=== PATIENT | male | born 1960 | race African-American/Black ===

== ENCOUNTER 2018-05-22 20:24 | Emergency (ER) | payer MEDICARE ==
[~2018-05-22] VITALS: Ht 182.9 cm; Wt 116.2 kg
[~2018-05-22 20:24] MED LIST: ACETTAB3 OR; AMLODIPINE5 MG PO; CEPHALEXIN500 MG OR; FINASTERIDE5 MG PO; FLEXERIL OR; FLEXERIL PO; LORTAB 1010 MG PO; LORTAB5 PO; METFORMIN500 M1 PO; MOBIC7.5 M1 PO; MULTIVITAMI1 OR; NORCO1 TA1 PO; NORVASC5 MG OR; NORVASC5 MG PO; SERTRALINE50 MG OR; ULTRAM50 M1 OR; ULTRAM50 MG OR; UNKNOWN MED; VENLAFAXINE HCL75 M1 PO; WELLBUTRIN X1 PO; ZOLOFT100 MG PO
[2018-05-22] MEDS ORDERED: FIORICET PO (22:00)
[2018-05-22] MEDS ORDERED: AMOXICILLIN500 MG PO (22:00)
[2018-05-22 22:23] VITALS: BP 142/84
== END 2018-05-22 22:23 | disposition home or self-care (01) ==
LOC: ED 20:24
DX: K02.9 Dental caries, unspecified (principal); R51 Headache; E11.9 Type 2 diabetes mellitus without complications; I10 Essential (primary) hypertension; F17.210 Nicotine dependence, cigarettes, uncomplicated

== ENCOUNTER 2022-03-10 06:31 | Day surgery (SDC) | payer MEDICARE ==
[~2022-03-10] VITALS: Ht 182.9 cm; Wt 123.4 kg
[~2022-03-10 06:31] MED LIST changes: +AMOXICILLIN500 MG PO; +DOXAZOSIN4 MG PO; +FIORICET PO; +VITAMIN B-12500 MCG PO
[2022-03-10 10:59] VITALS: BP 109/77
== END 2022-03-10 09:00 | disposition home or self-care (01) ==
LOC: ENDO 06:31
PROVIDERS: ATTEND Surgery
PROC: 0DBL8ZX Excision of Transverse Colon, Via Natural or Artificial Opening Endoscopic, Diagnostic (ICD-10-PCS; principal; 2022-03-10)
DX: Z12.11 Encounter for screening for malignant neoplasm of colon (principal); K63.5 Polyp of colon; K64.8 Other hemorrhoids; C85.90 Non-Hodgkin lymphoma, unspecified, unspecified site; F17.200 Nicotine dependence, unspecified, uncomplicated; Z94.81 Bone marrow transplant status

== ENCOUNTER 2023-01-06 11:52 | Inpatient (IN) | payer MEDICARE ==
[2023-01-06] VITALS (17 sets, daily range): BP systolic 83–132; BP diastolic 33–66
[~2023-01-06] VITALS: Ht 182.9 cm; Wt 109.3 kg
--- NOTE | 2023-01-06 11:52 | NUR ---
PT ARRIVE TO ER VIA EMS. PT PLACED IN RM 4. PROVIDER AT BEDSIDE.
[2023-01-06] MEDS ORDERED: DOXEPIN HCL25 MG PO (12:46)
[2023-01-06 12:47] LABS: BASO% 0.1 % (0-3); IMMATURE GRANULOCYTES 0.5 % (0.0-5.0); LYMPH% 10.4 % (15-41); MEAN CELL VOLUME 99.5 fL CALC (80.0-100.0); MEAN CORPUSCULAR HGB 28.6 pG CALC (26.0-32.0); MEAN CORPUSCULAR HGB CONC 28.7 g/dL CAL (32.0-36.0); MONO% 7.2 % (2-13); NEUT# 6.14 thou/uL (1.82-7.42); NEUT% 81.8 % (42-76); RED BLOOD COUNT 1.82 mill/uL (4.70-6.10); RED CELL DISTRI WIDTH 17.5 % (11.5-15.5)
[2023-01-06] MEDS ORDERED: GABAPENTIN600 MG PO (12:47)
[2023-01-06] MEDS ORDERED: FUROSEMIDE20 MG PO (12:47)
[2023-01-06] MEDS ORDERED: METFORMIN HCL1000 MG PO (12:48)
[2023-01-06] MEDS ORDERED: HYDROXYCHLOR200 M1 PO ×2 (12:49→12:52)
[2023-01-06 12:50] LABS: HEMATOCRIT 18.1 % (39.0-50.0); HEMOGLOBIN 5.2 g/dl (14.0-18.0)
[2023-01-06] MEDS ORDERED: ASPIRIN81 MG PO (12:50)
[2023-01-06] MEDS ORDERED: TOPROL XL25 M1 PO (12:51)
[2023-01-06 13:04] LABS: INTERNATIONAL NORMALIZED RATIO 1.3 RATIO (0.7-1.3)
[2023-01-06 13:06] LABS: ALBUMIN 3.2 g/dL (3.2-5.0); ALKALINE PHOSPHATASE 46 u/l (38-126); BILIRUBIN, TOTAL 0.3 mg/dL (0.2-1.3); BUN 28 mg/dL (9-20); BUN/CREATININE RATIO 21 (12-20 (CALC)); CARBON DIOXIDE 21 mmol/l (22-30); CHLORIDE 101 mmol/l (95-108); CREATININE 1.3 mg/dL (0.7-1.3); GFR FOR AFR.AMER. > 60 ML/MIN (>=60 (CALC)); GFR OTHER RACES 56 ML/MIN (>=60 (CALC)); POTASSIUM 4.2 mmol/l (3.5-5.1); TOTAL PROTEIN 6.8 g/dL (6.3-8.2)
[2023-01-06 13:09] LABS: ANION GAP 12 (6-22 (CALC)); SGOT/AST 68 u/l (17-59); SODIUM 130 mmol/l (137-146)
[2023-01-06 18:27] LABS: HEMATOCRIT 18.4 % (39.0-50.0); HEMOGLOBIN 5.4 g/dl (14.0-18.0)
--- NOTE | 2023-01-06 20:44 | NUR ---
STARTED BLOOD TRANSFUSION IN ED PRIOR TO TAKING TO ICU. PATIENT SIGNED CONSENT AND HAS PREVIOUSLY RECEIVED TRANSFUSION. REPORT RECEIVED FROM PREVIOUS SHIFT STATES POSITIVE OCCULT BLOOD. PROTONIX DRIP STARTED WELL. TAKEN TO ICU ROOM 2 AT 2029.
[2023-01-06 21:09] LABS: URINE BILIRUBIN - DIPSTICK NEGATIVE (NEGATIVE); URINE BLOOD DIPSTICK LARGE (NEGATIVE); URINE COLOR YELLOW; URINE GLUCOSE - DIPSTICK NEGATIVE (NEGATIVE); URINE KETONE NEGATIVE (NEGATIVE); URINE LEUK ESTERASE NEGATIVE (NEGATIVE); URINE PH 5.5 (4.5-8.0); URINE PROTEIN - DIPSTICK 30 mg/dL (NEG-TRACE); URINE UROBILINOGEN - DIPSTICK 0.2 E.U./dL (0.2)
[2023-01-06 21:10] LABS: URINE NITRITE - DIPSTICK NEGATIVE (Negative)
[2023-01-06 21:15] LABS: URINE SQUAMOUS EPITHELIAL CELL RARE EPI/hpf (0-FEW)
[2023-01-07] VITALS (59 sets, daily range): BP systolic 48–146; BP diastolic 25–96
[2023-01-07 05:31] LABS: BASO% 0.1 % (0-3); EOS% 0.5 % (0-8); HEMATOCRIT 23.8 % (39.0-50.0); IMMATURE GRANULOCYTES 0.3 % (0.0-5.0); LYMPH% 16.2 % (15-41); MEAN CELL VOLUME 98.8 fL CALC (80.0-100.0); MEAN CORPUSCULAR HGB 30.7 pG CALC (26.0-32.0); MEAN CORPUSCULAR HGB CONC 31.1 g/dL CAL (32.0-36.0); NEUT# 5.25 thou/uL (1.82-7.42); NEUT% 69.9 % (42-76); RED BLOOD COUNT 2.41 mill/uL (4.70-6.10); RED CELL DISTRI WIDTH 16.6 % (11.5-15.5)
[2023-01-07 05:46] LABS: HEMOGLOBIN 7.4 g/dl (14.0-18.0)
[2023-01-07 05:50] LABS: ANION GAP 11 (6-22 (CALC)); BUN 25 mg/dL (9-20); BUN/CREATININE RATIO 24 (12-20 (CALC)); CARBON DIOXIDE 23 mmol/l (22-30); CHLORIDE 105 mmol/l (95-108); CREATININE 1.1 mg/dL (0.7-1.3); GFR FOR AFR.AMER. > 60 ML/MIN (>=60 (CALC)); GFR OTHER RACES > 60 ML/MIN (>=60 (CALC)); MAGNESIUM 2.2 mg/dL (1.6-2.3); POTASSIUM 3.9 mmol/l (3.5-5.1); SODIUM 136 mmol/l (137-146)
[2023-01-07 08:27] LABS: HEMATOCRIT 23.1 % (39.0-50.0); HEMOGLOBIN 7.1 g/dl (14.0-18.0)
--- NOTE | 2023-01-07 08:56 | NUR ---
PT SEEN AWAKE, ALERT, ORIENTED X 3. DR HERZOG HAS SEEN PT THIS MORNING. PT AWARE OF PENDING SCOPE, WHICH DR EWING SAYS WILL BE TOMORROW.
--- NOTE | 2023-01-07 12:30 | NUR ---
PT AWARE OF EGD/COLONOSCOPY TOMORROW. HE HAS BEEN STARTED ON HIS BOWEL PREP, AND HAS HAD ONE LOOSE STOOL ALREADY. PT APPEARS WEAK, NOT MOVING VERY FAST, BUT STEADY ON HIS FEET.
[2023-01-07 14:09] LABS: HEMATOCRIT 25.4 % (39.0-50.0); HEMOGLOBIN 7.6 g/dl (14.0-18.0)
--- NOTE | 2023-01-07 14:21 | NUR ---
PT CONTINUES WITH BOWEL PREP, TO BSC NEEDED. STOOL IS LOOSE, DARK.
--- NOTE | 2023-01-07 20:10 | NUR ---
NEW IV STARTED IN R LOWER ARM AND RAC SITE REMOVED, BEDSIDE GLUCOSE 191 AFTER ADMIN OF 250 ML D10 FOR REPORTED GLUCOSE OF 52
[2023-01-07 20:20] LABS: HEMATOCRIT 24.2 % (39.0-50.0); HEMOGLOBIN 7.2 g/dl (14.0-18.0)
--- NOTE | 2023-01-07 22:15 | NUR ---
PT UP TO BSC, GOT COMPLETE BATH WITH LINEN AND GOWN CHANGE
[2023-01-08] VITALS (31 sets, daily range): BP systolic 89–143; BP diastolic 42–107
--- NOTE | 2023-01-08 00:20 | NUR ---
PT BEDSIDE GLUCOSE CHECKED, 33 THEN 18. PT NOT SYPTOMATIC, STAT LAB DRAW ORDERED, LAB RESULT 93, GLUCOMETER REPLACED BY LAB
[2023-01-08 02:10] LABS: HEMATOCRIT 24.7 % (39.0-50.0); HEMOGLOBIN 7.6 g/dl (14.0-18.0)
--- NOTE | 2023-01-08 03:10 | NUR ---
PT AGAIN TO BSC, BM ALMOST CLEAR, HE TRANSFERS WITH MINIMAL ASSIST AND REPOSITIONS SELF
--- NOTE | 2023-01-08 04:26 | NUR ---
PT RESTING, DENIES NEEDS, O2 AT 2 LPM, MAINTAINING SATS HIGH 90'S TO 100%
[2023-01-08 05:44] LABS: BASO% 0.2 % (0-3); EOS% 1.8 % (0-8); HEMATOCRIT 24.2 % (39.0-50.0); HEMOGLOBIN 7.4 g/dl (14.0-18.0); IMMATURE GRANULOCYTES 0.2 % (0.0-5.0); LYMPH% 18.6 % (15-41); MEAN CORPUSCULAR HGB CONC 30.6 g/dL CAL (32.0-36.0); MONO% 12.6 % (2-13); NEUT# 2.89 thou/uL (1.82-7.42); NEUT% 66.6 % (42-76); RED BLOOD COUNT 2.47 mill/uL (4.70-6.10); RED CELL DISTRI WIDTH 16.4 % (11.5-15.5)
[2023-01-08 06:09] LABS: INTERNATIONAL NORMALIZED RATIO 1.2 RATIO (0.7-1.3); PROTHROMBIN TIME 11.6 SECONDS (9.0-12.5)
[2023-01-08 06:16] LABS: ANION GAP 7 (6-22 (CALC)); BUN 17 mg/dL (9-20); BUN/CREATININE RATIO 18 (12-20 (CALC)); CARBON DIOXIDE 22 mmol/l (22-30); CHLORIDE 110 mmol/l (95-108); CREATININE 0.9 mg/dL (0.7-1.3); GFR FOR AFR.AMER. > 60 ML/MIN (>=60 (CALC)); GFR OTHER RACES > 60 ML/MIN (>=60 (CALC)); MAGNESIUM 2.1 mg/dL (1.6-2.3); POTASSIUM 3.9 mmol/l (3.5-5.1); SODIUM 136 mmol/l (137-146)
--- NOTE | 2023-01-08 08:00 | NUR ---
Patient sitting up on the side of the bed preparing for a partial bed bath. Patient denies any pain at this time. Patient is A/O x 4. Breathing is even and unlabored. No s/s of distress. No issues or concerns at this time.
--- NOTE | 2023-01-08 08:12 | NUR ---
Dr. Julian thao at bedside. Will review EGD/Colonoscopy results when available.
--- NOTE | 2023-01-08 08:14 | NUR ---
Patient left the unit with OR staff for EGD/colonoscopy.
--- NOTE | 2023-01-08 10:10 | NUR ---
Patient returned to the unit via stretcher accompained by OR staff. Patient is in stable condition. Patient denies having any pain. Colonoscopy revealed an internal hemorrhoid and EGD showed no active bleeding. Post-op assessment revealed clear lungs, even and unlabored breathing, and active bowel sounds. No s/s of distress. Will continue to monitor.
[2023-01-08] MEDS ORDERED: PROTONIX40 M2 PO (10:40)
[2023-01-08] MEDS ORDERED: FERROUS SULF325 M3 PO (10:40)
--- NOTE | 2023-01-08 12:00 | NUR ---
Patient sitting up in bed. Patient denies any pain at this time. No issues or concerns at this time. No s/s of distress. Will continue to monitor.
--- NOTE | 2023-01-08 14:00 | NUR ---
Patient appears to be asleep, resting with eyes close. No s/s of distress. Will continue to monitor.
--- NOTE | 2023-01-08 15:56 | NUR ---
Discharge instructions given. Patient verbalizes understanding of instructions given. Discharged in stable condition via Wheelchair to Home with family. All belongings sent with pt.
== END 2023-01-08 15:55 | DRG 812 ==
LOC: ED 11:52 → ED-I 13:30 → ED 16:14 → MS2 16:15 → ICU 20:31
PROVIDERS: Emergency Medicine; Internal Medicine; ADMIT Internal Medicine; ATTEND Internal Medicine
PROC: 30233N1 Transfusion of Nonautologous Red Blood Cells into Peripheral Vein, Percutaneous Approach (ICD-10-PCS; principal; 2023-01-06)
PROC: 30233N1 Transfusion of Nonautologous Red Blood Cells into Peripheral Vein, Percutaneous Approach (ICD-10-PCS; 2023-01-06)
PROC: 0DJD8ZZ Inspection of Lower Intestinal Tract, Via Natural or Artificial Opening Endoscopic (ICD-10-PCS; 2023-01-08)
PROC: 0DB98ZX Excision of Duodenum, Via Natural or Artificial Opening Endoscopic, Diagnostic (ICD-10-PCS; 2023-01-08)
PROC: 0DB78ZX Excision of Stomach, Pylorus, Via Natural or Artificial Opening Endoscopic, Diagnostic (ICD-10-PCS; 2023-01-08)
PROC: 0DB48ZX Excision of Esophagogastric Junction, Via Natural or Artificial Opening Endoscopic, Diagnostic (ICD-10-PCS; 2023-01-08)
DX: D62 Acute posthemorrhagic anemia (principal); K92.2 Gastrointestinal hemorrhage, unspecified; N17.9 Acute kidney failure, unspecified; K91.71 Accidental puncture and laceration of a digestive system organ or structure during a digestive system procedure; Z94.81 Bone marrow transplant status; E11.649 Type 2 diabetes mellitus with hypoglycemia without coma; I10 Essential (primary) hypertension; M32.9 Systemic lupus erythematosus, unspecified; K64.8 Other hemorrhoids; K29.80 Duodenitis without bleeding; K29.70 Gastritis, unspecified, without bleeding; K44.9 Diaphragmatic hernia without obstruction or gangrene; F17.200 Nicotine dependence, unspecified, uncomplicated; Y83.8 Other surgical procedures as the cause of abnormal reaction of the patient, or of later complication, without mention of misadventure at the time of the procedure; Z79.84 Long term (current) use of oral hypoglycemic drugs; Z85.72 Personal history of non-Hodgkin lymphomas; Z20.822 Contact with and (suspected) exposure to COVID-19
CPT/HCPCS: J1610; P9016; Q9967; S0164

== ENCOUNTER 2023-01-18 13:39 | Emergency (ER) | payer MEDICARE ==
[2023-01-18] VITALS (28 sets, daily range): BP systolic 46–160; BP diastolic 29–113
[~2023-01-18] VITALS: Ht 182.9 cm; Wt 109.0 kg
[~2023-01-18 13:39] MED LIST changes: +ASPIRIN81 MG PO; +DOXEPIN HCL25 MG PO; +FERROUS SULF325 M3 PO; +FUROSEMIDE20 MG PO; +GABAPENTIN600 MG PO; +HYDROXYCHLOR200 M1 PO; +METFORMIN HCL1000 MG PO; +PROTONIX40 M2 PO; +TOPROL XL25 M1 PO
[2023-01-18 14:24] LABS: BASO% 0.2 % (0-3); IMMATURE GRANULOCYTES 0.3 % (0.0-5.0); LYMPH% 14.9 % (15-41); MEAN CELL VOLUME 101.3 fL CALC (80.0-100.0); MEAN CORPUSCULAR HGB 28.6 pG CALC (26.0-32.0); MEAN CORPUSCULAR HGB CONC 28.2 g/dL CAL (32.0-36.0); MONO% 11.1 % (2-13); NEUT# 4.5 thou/uL (1.82-7.42); NEUT% 73.5 % (42-76); RED BLOOD COUNT 1.54 mill/uL (4.70-6.10); RED CELL DISTRI WIDTH 16.9 % (11.5-15.5)
[2023-01-18 14:26] LABS: HEMATOCRIT 15.6 % (39.0-50.0); HEMOGLOBIN 4.4 g/dl (14.0-18.0)
[2023-01-18 14:39] LABS: ALBUMIN 3.5 g/dL (3.2-5.0); ALKALINE PHOSPHATASE 41 u/l (38-126); ANION GAP 13 (6-22 (CALC)); BUN 26 mg/dL (9-20); BUN/CREATININE RATIO 27 (12-20 (CALC)); CARBON DIOXIDE 23 mmol/l (22-30); CHLORIDE 105 mmol/l (95-108); GFR FOR AFR.AMER. > 60 ML/MIN (>=60 (CALC)); GFR OTHER RACES > 60 ML/MIN (>=60 (CALC)); POTASSIUM 4.5 mmol/l (3.5-5.1); SGOT/AST 36 u/l (17-59); SODIUM 137 mmol/l (137-146); TOTAL PROTEIN 7.3 g/dL (6.3-8.2)
== END 2023-01-18 19:35 | disposition short-term general hospital (02) ==
LOC: ED 13:39
PROVIDERS: Family Medicine
PROC: 02HV33Z Insertion of Infusion Device into Superior Vena Cava, Percutaneous Approach (ICD-10-PCS; principal; 2023-01-18)
PROC: 30243N1 Transfusion of Nonautologous Red Blood Cells into Central Vein, Percutaneous Approach (ICD-10-PCS; 2023-01-18)
PROC: 30243N1 Transfusion of Nonautologous Red Blood Cells into Central Vein, Percutaneous Approach (ICD-10-PCS; 2023-01-18)
PROC: 30243N1 Transfusion of Nonautologous Red Blood Cells into Central Vein, Percutaneous Approach (ICD-10-PCS; 2023-01-18)
DX: K92.2 Gastrointestinal hemorrhage, unspecified (principal); D64.9 Anemia, unspecified; I11.0 Hypertensive heart disease with heart failure; I50.9 Heart failure, unspecified; E11.9 Type 2 diabetes mellitus without complications; M32.9 Systemic lupus erythematosus, unspecified; C85.90 Non-Hodgkin lymphoma, unspecified, unspecified site; Z79.84 Long term (current) use of oral hypoglycemic drugs
CPT/HCPCS: P9016; Q9967; S0164

== ENCOUNTER 2023-06-27 15:24 | Emergency (ER) | payer MEDICARE ==
[~2023-06-27] VITALS: Ht 182.9 cm; Wt 76.0 kg
[2023-06-27 15:45] VITALS: BP 165/94
[2023-06-27 15:59] LABS: GFR FOR AFR.AMER. > 60 ML/MIN (>=60 (CALC)); GFR OTHER RACES > 60 ML/MIN (>=60 (CALC))
[2023-06-27 16:00] VITALS: BP 163/92
[2023-06-27 16:03] LABS: EOS% 1.9 % (0-8); HEMATOCRIT 30.7 % (39.0-50.0); HEMOGLOBIN 8.8 g/dl (14.0-18.0); IMMATURE GRANULOCYTES 0.3 % (0.0-5.0); LYMPH% 31.1 % (15-41); MEAN CELL VOLUME 94.8 fL CALC (80.0-100.0); MEAN CORPUSCULAR HGB 27.2 pG CALC (26.0-32.0); MEAN CORPUSCULAR HGB CONC 28.7 g/dL CAL (32.0-36.0); MONO% 18.5 % (2-13); NEUT# 1.77 thou/uL (1.82-7.42); NEUT% 48.2 % (42-76); RED BLOOD COUNT 3.24 mill/uL (4.70-6.10); RED CELL DISTRI WIDTH 18.3 % (11.5-15.5)
[2023-06-27 16:13] LABS: ALBUMIN 4.4 g/dL (3.2-5.0); ALKALINE PHOSPHATASE 73 u/l (38-126); BILIRUBIN, TOTAL 0.4 mg/dL (0.2-1.3); BUN 18 mg/dL (8-23); BUN/CREATININE RATIO 18 (12-20 (CALC)); CHLORIDE 108 mmol/l (95-108); GFR FOR AFR.AMER. > 60 ML/MIN (>=60 (CALC)); GFR OTHER RACES > 60 ML/MIN (>=60 (CALC)); POTASSIUM 4.5 mmol/l (3.5-5.1); SGOT/AST 45 u/l (19-48); SODIUM 139 mmol/l (137-146); TOTAL PROTEIN 9.5 g/dL (6.3-8.2)
[2023-06-27 16:15] LABS: ANION GAP 17 (6-22 (CALC)); CARBON DIOXIDE 19 mmol/l (22-30)
[2023-06-27 17:16] VITALS: BP 163/92
== END 2023-06-27 17:05 | disposition home or self-care (01) ==
LOC: ED 15:24
PROVIDERS: Family Medicine
DX: K92.2 Gastrointestinal hemorrhage, unspecified (principal); I10 Essential (primary) hypertension; E11.9 Type 2 diabetes mellitus without complications; C85.90 Non-Hodgkin lymphoma, unspecified, unspecified site; Z79.84 Long term (current) use of oral hypoglycemic drugs
CPT/HCPCS: Q9967